=== PATIENT | male | born 1950 | race Caucasian/White ===

== ENCOUNTER → 2020-09-29 | Outpatient (CLI) | payer OTHER, MEDICARE ==
[~2020-09-29] MED LIST: ACHYD1T PO; CPR500T PO; HYOS0.1216 PO; PHEN200T27 PO
--- NOTE | 2020-09-29 10:09 | Diagnostic Imaging Report ---
PROCEDURE: US carotid duplex, bilateral. TECHNIQUE: Multiple real-time grayscale images were obtained over the carotid arteries in various projections, bilaterally. Additional spectral analysis and color Doppler duplex images were also obtained. INDICATION: Dizziness. There are no prior studies available for comparison. There is only very mild soft plaque formation in each carotid system. The flow velocities failed to show any sign of a hemodynamically significant stenosis of the common or internal carotid arteries. Both vertebral arteries were identified and there was antegrade flow bilaterally. IMPRESSION: There is very mild atherosclerotic disease involving both carotid systems. There is no evidence for a hemodynamically significant stenosis of either internal or common carotid artery. Parameters based on the consensus panel Martinez-Scale and Doppler ultrasound criteria published April 2003, Radiology, Volume 229. DOPPLER (peak systolic velocity M/S Right Left CCA 0.61 0.52 ICA Proximal 0.52 0.71 ICA Mid 0.67 0.70 ICA Distal 0.67 0.77 RATIO 1.1 1.5 ECA 0.98 0.94 VERT 0.47 0.34 Dictated by: Dictated on workstation # [id number]
== END ==
LOC: RAD 09:11
PROVIDERS: ATTEND Otolaryngology Otolaryngology/Facial Plastic Surgery
DX: I65.23 Occlusion and stenosis of bilateral carotid arteries (principal); H93.A9 Pulsatile tinnitus, unspecified ear; R42 Dizziness and giddiness
CPT/HCPCS: 93880